=== PATIENT | male | born 1930 | race Caucasian/White ===

== ENCOUNTER 2017-01-05 17:09 | Emergency (ER) | payer OTHER ==
--- NOTE | 2017-01-05 17:33 | PDOC ---
Attending Attestation - Resident Resident Name: Farzaneh Iqbal - ED Attending Attestation I have performed the following: I have examined & evaluated the patient, The case was reviewed & discussed with the resident, I agree w/resident's findings & plan, Exceptions are as noted - HPI HPI: 01/05/17 17:29 86 yo here for chest pain - Physicial Exam PE: 01/05/17 17:30 VSS NAD no active chest pain at present - Medical Decision Making 01/05/17 17:[address] Iqbal's Assessment and Plan
--- NOTE | 2017-01-05 18:13 | PDOC ---
History of Present Illness - General Chief Complaint: Chest Pain Stated Complaint: CHEST PAIN/DIFF BREATHING Time Seen by Provider: 01/05/17 17:22 History Source: Patient, Family Exam Limitations: Language Barrier - History of Present Illness Initial Comments: 01/05/17 18:05 CC: Elevated BP Patient is a 86 y.o. male with a PMH of HTN and Polymyalgia Rheumatica who presents to our ED today c/o of elevated blood pressure. Patient notes he measures his pressure at home daily and he often has an associated neck pain with a high blood pressure reading. Today, patient noted his characteristic neck pain and his subsequent measured pressure 220's/190's. Patient denies any associated blurry vision and further notes he has a constant headache. Patient states he is adherent to his blood pressure medication regimen. Patient denies any current chest pain, abdominal pain, shortness of breath, nausea, vomiting or diarrhea. * Majority of HPI obtained using cuff turner for Somali --> Nauruan translation; patient's son @ bedside offers differing HPI of chest pain following exertion. Past History - Past Medical History Allergies/Adverse Reactions: Allergies Allergy/AdvReac Type Severity Reaction Status Date / Time Sulfa (Sulfonamide Allergy Hives Verified 01/05/17 17:27 Antibiotics) Home Medications: Ambulatory Orders Alfuzosin HCl [Uroxatral] 10 mg PO DAILY 08/13/13 Amlodipine Besylate/Benazepril [Lotrel 10-20 Mg Capsule] 1 each PO DAILY capsule 08/13/13 Doxazosin Mesylate [Cardura] 2 mg PO DAILY tablet 08/13/13 Levothyroxine Sodium 112 mcg PO ONCE #30 tablet 08/13/13 Carvedilol [Coreg -] 12.5 mg PO BID 03/28/15 Lipase/Protease/Amylase [Zenpep Dr 15,000 Units Capsule] 1 each PO 03/28/15 Meloxicam [Mobic (Nf) -] 15 mg PO PRN 03/28/15 Simvastatin [Zocor -] 20 mg PO HS 03/28/15 Prednisone [Deltasone -] 10 mg PO DAILY #60 tablet 01/09/16 HTN: Yes Thyroid Disease: Yes (HYPO) - Immunization History Immunization Up to Date: Yes - Psycho/Social/Smoking Cessation Hx Anxiety: No Suicidal Ideation: No Smoking Status: Yes Smoking History: Never smoked Have you smoked in the past 12 months: No Number of Cigarettes Smoked Daily: 0 If you are a former smoker, when did you quit?: 1970 Hx Alcohol Use: No Drug/Substance Use Hx: No Substance Use Type: None Hx Substance Use Treatment: No Review of Systems - Review of Systems Constitutional: No: Chills, Diaphoresis HEENTM: No: Blurred Vision, Double Vision Respiratory: No: Orthopnea Cardiac (ROS): Yes: Chest Pain ABD/GI: No: Constipated, Diarrhea, Nausea, Vomiting : No: Burning, Pain Musculoskeletal: Yes: Neck Pain Neurological: No: Headache, Numbness, Tingling, Tremors All Other Systems: Reviewed and Negative *Physical Exam - Vital Signs Last Vital Signs Temp Pulse Resp BP Pulse Ox 97.7 F 69 20 179/102 99 01/05/17 17:10 01/05/17 17:10 01/05/17 17:10 01/05/17 17:10 01/05/17 17:10 - Physical Exam General Appearance: Yes: Nourished, Appropriately Dressed HEENT: positive: EOMI, JENNY Neck: positive: Trachea midline, Supple Respiratory/Chest: positive: Lungs Clear, Normal Breath Sounds Cardiovascular: positive: Regular Rhythm, Regular Rate, S1, S2 Gastrointestinal/Abdominal: positive: Soft, Hernia Neurologic: positive: hooker on II-XII NML intact, Fully Oriented, Alert ED Treatment Course - LABORATORY CBC & Chemistry Diagram: 01/05/17 17:36 01/05/17 17:36 Medical Decision Making - Medical Decision Making 01/05/17 18:15 Patient is a 86 y.o. male who presents for elevated BP measured at home at 220's /190's. On PE patient's BP is 150's-160's/80's-90's. EKG showed NSR (HR 62 BPM ), no KS prolongation (KS interval 152 ms), no QT prolongation (QTC 420) and no discernible ST elevations/depressions. Given patient's age and risk factor cardiac profile obtained (note SHANTELLE Score of 1) as well as CMP, CBC. Patient labs pending @ time of signout to Dr. Colton Ojeda (EM Resident) and Dr. Odette Richardson (EM Attending). *DC/Admit/Observation/Transfer Diagnosis at time of Disposition: Blood pressure check - Discharge Dispostion Disposition: HOME Condition at time of disposition: Good Admit: No - Referrals Referrals: Nayan Heath MD [Staff Physician] - - Patient Instructions Printed Discharge Instructions: DI for Atypical Chest Pain Additional Instructions: You were evaluated today for elevated blood pressure as measured at your. Your pressure was stable during your admission here, and we suggest you continue to take your blood pressure medication as directed by your PCP Please return to the ED should you have repeated increased blood pressures, chest pain, shortness of breath, or severe discomfort. We have also provided a referral to general surgery to evaluate your hernia. Please call Dr. Heath's office for an appointment to have your hernia evaluated. Print Language: GUINEAN
[2017-01-05 18:41] LABS: BASOPHIL 0.3 % (0-2.0); MCHC 35.3 g/dl (32.0-35.9); MEAN CELL VOLUME 93.5 fl (80-96); NEUTROPHILS 71.3 % (42.8-82.8); PLATELET COUNT 214 K/MM3 (134-434); RDW 13.3 % (11.9-15.9)
[2017-01-05 18:43] LABS: URINE APPEARANCE CLEAR; URINE BILIRUBIN NEGATIVE (NEGATIVE); URINE BLOOD 1+ (NEGATIVE); URINE COLOR COLORLESS; URINE GLUCOSE (UA) NEGATIVE (NEGATIVE); URINE KETONE NEGATIVE (NEGATIVE); URINE LEUK ESTERASE NEGATIVE (NEGATIVE); URINE NITRITE NEGATIVE (NEGATIVE); URINE PROTEIN NEGATIVE (NEGATIVE); URINE UROBILINOGEN NEGATIVE mg/dL (0.2-1.0)
[2017-01-05 18:53] LABS: URINE BACTERIA RARE /hpf (NONE SEEN); URINE RBC <1 /hpf (0-3); URINE WBC <1 /hpf (3-5)
[2017-01-05 19:05] LABS: ALBUMIN 4.2 g/dl (3.4-5.0); ALK PHOS 141 U/L (45-117); ANION GAP 9 (8-16); BILIRUBIN,TOTAL 0.6 mg/dL (0.2-1.0); CALCIUM 8.9 mg/dL (8.5-10.1); CO2 24 mmol/L (21-32); CREATININE 1.3 mg/dL (0.7-1.3); GLUCOSE,RANDOM 110 mg/dL (74-106); SGOT/AST 19 U/L (15-37); SGPT/ALT 21 U/L (12-78); TOT PROT 7.5 g/dl (6.4-8.2)
--- NOTE | 2017-01-05 19:23 | PDOC ---
*Physical Exam - Vital Signs Last Vital Signs Temp Pulse Resp BP Pulse Ox 97.7 F 69 20 179/102 99 01/05/17 17:10 01/05/17 17:10 01/05/17 17:10 01/05/17 17:10 01/05/17 17:10 - Physical Exam Comments: 01/05/17 19:21 GENERAL: Awake, alert, and fully oriented, in no acute distress HEAD: No signs of trauma, normocephalic, atraumatic EYES: PERRLA, EOMI, sclera anicteric, conjunctiva clear ENT: Auricles normal inspection, hearing grossly normal, nares patent, oropharynx clear without exudates. Moist mucosa NECK: Normal ROM, supple, no lymphadenopathy, JVD, or masses LUNGS: No distress, speaks full sentences, clear to auscultation bilaterally HEART: Regular rate and rhythm, normal S1 and S2, no murmurs, rubs or gallops, peripheral pulses normal and equal bilaterally. EXTREMITIES : Normal inspection, Normal range of motion, no edema. No clubbing or cyanosis. SKIN: Warm, Dry, normal turgor, no rashes or lesions noted. ED Treatment Course - LABORATORY CBC & Chemistry Diagram: 01/05/17 17:36 01/05/17 17:36 - ADDITIONAL ORDERS Additional order review: Laboratory Results 01/05/17 01/05/17 17:36 17:36 Sodium 139 Potassium 4.0 Chloride 106 Carbon Dioxide 24 Anion Gap 9 BUN 24 H Creatinine 1.3 Creat Clearance w eGFR 52.22 Random Glucose 110 H Calcium 8.9 Total Bilirubin 0.6 D AST 19 ALT 21 D Alkaline Phosphatase 141 H Total Protein 7.5 Albumin 4.2 Urine Color Colorless Urine Appearance Clear Urine pH 6.0 Urine Protein Negative Urine Glucose (UA) Negative Urine Ketones Negative Urine Blood 1+ H Urine Nitrite Negative Urine Bilirubin Negative Urine Urobilinogen Negative Ur Leukocyte Esterase Negative Urine RBC <1 Urine WBC <1 Urine Bacteria Rare 01/05/17 17:36 RBC 4.40 MCV 93.5 MCHC 35.3 RDW 13.3 MPV 7.0 L Neutrophils % 71.3 Lymphocytes % 17.7 Monocytes % 7.7 Eosinophils % 3.0 Basophils % 0.3 Medical Decision Making - Medical Decision Making 01/05/17 19:18 86 yo M with h/o HTN who presents with elevated SBP. SBP at home 200's prior to arrival. Pt asymptomatic denies chest pain, SOB, visual complaints, or blood in urine. On arrival SBP 150's. Pt. EKG and CXR Unremarkable. 01/05/17 19:20 ED Course: CBC, CMP, UA: unremarkable Stable D/C *DC/Admit/Observation/Transfer Diagnosis at time of Disposition: Blood pressure check - Discharge Dispostion Disposition: HOME Condition at time of disposition: Good - Referrals Referrals: Nayan Heath MD [Staff Physician] - - Patient Instructions Printed Discharge Instructions: DI for Atypical Chest Pain Additional Instructions: You were evaluated today for elevated blood pressure as measured at your. Your pressure was stable during your admission here, and we suggest you continue to take your blood pressure medication as directed by your PCP Please return to the ED should you have repeated increased blood pressures, chest pain, shortness of breath, or severe discomfort. We have also provided a referral to general surgery to evaluate your hernia. Please call Dr. Heath's office for an appointment to have your hernia evaluated. Print Language: KYRGYZ - Post Discharge Activity
[2017-01-05 19:34] LABS: CPK 86 IU/L (39-308)
[2017-01-05 19:35] LABS: TROPONIN I < 0.02 ng/ml (0.00-0.05)
[2017-01-05 19:50] VITALS: TEMP 98.2; BMI 25.0
[2017-01-05 20:02] VITALS: BP 159/62; PULSE 18
--- NOTE | 2017-01-06 21:47 | EKG ---
Test Reason : Blood Pressure : / mmHG Vent. Rate : 062 BPM Atrial Rate : 062 BPM P-R Int : 152 ms QRS Dur : 092 ms QT Int : 414 ms P-R-T Axes : 050 016 043 degrees QTc Int : 420 ms NORMAL SINUS RHYTHM NORMAL ECG WHEN COMPARED WITH ECG OF 09-JAN-2016 14:26, NO SIGNIFICANT CHANGE WAS FOUND Confirmed by SEFERINO REA MD ([id number]) on 01/06/2017 9:47:21 PM Referred By: Confirmed By:SEFERINO REA MD
== END 2017-01-05 19:50 | disposition home or self-care (01) ==
LOC: JER 17:09
DX: I10 Essential (primary) hypertension (principal); M35.3 Polymyalgia rheumatica
CPT/HCPCS: 36415; 80053; 81003; 81015; 84484; 85025; 93005; 93010; 99283-25

== ENCOUNTER 2017-02-06 14:29 | Emergency (ER) | payer OTHER ==
[2017-02-06 14:39] VITALS: TEMP 98.4; BMI 23.8
--- NOTE | 2017-02-06 16:05 | PDOC ---
History of Present Illness - General History Source: Patient Exam Limitations: No Limitations - History of Present Illness Initial Comments: 02/06/17 16:43 The patient is a 87 year old male, with a significant past medical history of HTN, who presents to the emergency department with mild abdominal pain and elevated BP today. Patient notes measuring his BP at home reading 200/100 and developing abdominal cramping. He denies any prior [place] or cardiac disease. He denies any chest pain complaints upon ED arrival. He denies any recent fevers, chills, headache or dizziness. He denies any recent nausea, vomit, diarrhea or constipation. He denies any recent chest pain or shortness of breath. He denies any recent dysuria, frequency, urgency or hematuria. Allergies: NKA Past surgical history: None reported. Social History: Nonsmoker. Denies EtOH use and recreational drug use. Primary Care Physician: <Amaury Forbes - Last Filed: 02/06/17 16:43> - General History Source: Patient Exam Limitations: No Limitations <Sobia Ford - Last Filed: 02/06/17 18:56> - General Chief Complaint: Blood Pressure Problem Stated Complaint: HIGH BLOOD PRESURE/CHEST PAIN Past History <Amaury Forbes - Last Filed: 02/06/17 16:43> - Past Medical History HTN: Yes Thyroid Disease: Yes (HYPO) - Immunization History Immunization Up to Date: Yes - Suicide/Smoking/Psychosocial Hx Smoking Status: Yes Smoking History: Never smoked Have you smoked in the past 12 months: No Number of Cigarettes Smoked Daily: 0 If you are a former smoker, when did you quit?: 1969 Information on smoking cessation initiated: No Hx Alcohol Use: No Drug/Substance Use Hx: No Substance Use Type: None Hx Substance Use Treatment: No <Sobia Ford - Last Filed: 02/06/17 18:56> - Past Medical History Allergies/Adverse Reactions: Allergies Allergy/AdvReac Type Severity Reaction Status Date / Time Sulfa (Sulfonamide Allergy Hives Verified 02/06/17 14:33 Antibiotics) Home Medications: Ambulatory Orders Doxazosin Mesylate [Cardura] 2 mg PO DAILY tablet 08/13/13 Levothyroxine Sodium 112 mcg PO ONCE #30 tablet 08/13/13 Carvedilol [Coreg -] 6.25 mg PO BID 03/28/15 Meloxicam [Mobic (Nf) -] 15 mg PO PRN 03/28/15 Amlodipine Besylate/Benazepril [Lotrel 10-20 mg Capsule] 1 tab PO DAILY Review of Systems - Review of Systems Able to Perform ROS?: Yes Comments:: 02/06/17 16:17 GENERAL/CONSTITUTIONAL: No fever or chills. No weakness. HEAD, EYES, EARS, NOSE AND THROAT: No change in vision. No ear pain or discharge. No sore throat. CARDIOVASCULAR: No shortness of breath. RESPIRATORY: No cough, wheezing, or hemoptysis. GASTROINTESTINAL: No nausea, vomiting, diarrhea or constipation. GENITOURINARY: No dysuria, frequency, or change in urination. MUSCULOSKELETAL: No joint or muscle swelling or pain. No neck or back pain. SKIN: No rash NEUROLOGIC: No headache, vertigo, loss of consciousness, or change in strength/ sensation. ENDOCRINE: No increased thirst. No abnormal weight change. HEMATOLOGIC/LYMPHATIC: No anemia, easy bleeding, or history of blood clots. ALLERGIC/IMMUNOLOGIC: No hives or skin allergy. <Amaury Forbes - Last Filed: 02/06/17 16:43> *Physical Exam - Vital Signs Last Vital Signs Temp Pulse Resp BP Pulse Ox 98.4 F 48 L 18 214/72 100 02/06/17 14:35 02/06/17 15:10 02/06/17 15:10 02/06/17 15:10 02/06/17 15:15 - Physical Exam Comments: 02/06/17 16:43 GENERAL: Awake, alert, and fully oriented, in no acute distress HEAD: No signs of trauma EYES: PERRLA, EOMI, sclera anicteric, conjunctiva clear ENT: Auricles normal inspection, hearing grossly normal, nares patent, Moist mucosa NECK: Normal ROM, supple, JVD, or masses LUNGS: Breath sounds equal, clear to auscultation bilaterally. No wheezes, and no crackles HEART: Regular rate and rhythm, normal S1 and S2, no murmurs, rubs or gallops ABDOMEN: Soft, nontender, normoactive bowel sounds. No guarding, no rebound. No masses EXTREMITIES: Normal range of motion, no edema. No clubbing or cyanosis. No cords, erythema, or tenderness. 2+DP/PT pulses. NEUROLOGICAL: Normal speech, normal gait, moves all extremities equally. Speech clear. SKIN: Warm, Dry, normal turgor, no rashes or lesions noted. <Amaury Forbes - Last Filed: 02/06/17 16:43> - Vital Signs Last Vital Signs Temp Pulse Resp BP Pulse Ox 98.4 F 48 L 18 214/72 100 02/06/17 14:35 02/06/17 15:10 02/06/17 15:10 02/06/17 15:10 02/06/17 15:15 <Sobia Ford - Last Filed: 02/06/17 18:56> ED Treatment Course - LABORATORY CBC & Chemistry Diagram: 02/06/17 16:05 02/06/17 16:05 <Amaury Forbes - Last Filed: 02/06/17 16:43> - LABORATORY CBC & Chemistry Diagram: 02/06/17 16:05 02/06/17 16:05 - RADIOLOGY Radiology Studies Ordered: Category Date Time Status CHEST PA & LAT [RAD] Stat Radiology 02/06/17 15:59 Ordered <Sobia Ford - Last Filed: 02/06/17 18:56> Medical Decision Making - Medical Decision Making 02/06/17 16:02 87 yo male with h/o htn, here with c/o chest pain and elevated bp at home. here with son. pressure like midsternal chest pain, no radiation 09/04. no aspirin. taking his bp meds. toprol 100 once daily. doxasosin 2mg . compliant no prior mi or stents. on exam awake alert lungs clear heart rrr nomrg. abd soft nt nd. ext wwp no edema. no swelling. / plan: differential acs. angina, pneumonia. hypertensive emergency. plan ekg labs trop, aspirin, repeat bp improved without intervention ined. <Sobia Ford - Last Filed: 02/06/17 18:56> *DC/Admit/Observation/Transfer - Attestations Scribe Attestion: 02/06/17 16:17 Documentation prepared by Amaury Forbes, acting as emergency medical technician/driver for Sobia Ford MD. <Amaury Forbes - Last Filed: 02/06/17 16:43> <Sobia Ford - Last Filed: 02/06/17 18:56> Diagnosis at time of Disposition: Hypertension - Discharge Dispostion Disposition: HOME Condition at time of disposition: Improved - Referrals Referrals: Logan Santos MD [Primary Care Provider] - - Patient Instructions Printed Discharge Instructions: DI for High Blood Pressure, How to Monitor Your Blood Pressure at Home Additional Instructions: follow up with DR Santos to discuss your blood pressure medications. you should be seen in the next. week. return for chest pain, shortness or breath or any concerns.
[2017-02-06 16:20] LABS: BASOPHIL 0.4 % (0-2.0); EOSINOPHIL 1.9 % (0-4.5); MCH 33.2 pg (25.7-33.7); MCHC 34.8 g/dl (32.0-35.9); MEAN CELL VOLUME 95.4 fl (80-96); MEAN PLT VOLUME 7.3 fl (7.5-11.1); NEUTROPHILS 72.3 % (42.8-82.8); PLATELET COUNT 246 K/MM3 (134-434); RDW 13.7 % (11.9-15.9); WHITE BLOOD COUNT 11.8 K/mm3 (4.0-10.0)
[2017-02-06 16:50] LABS: ANION GAP 7 (8-16); CO2 27 mmol/L (21-32); CREATININE 1.4 mg/dL (0.7-1.3); GLUCOSE,RANDOM 96 mg/dL (74-106); SGPT/ALT 22 U/L (12-78)
[2017-02-06 16:54] LABS: ALK PHOS 150 U/L (45-117); BILIRUBIN,TOTAL 0.6 mg/dL (0.2-1.0); TOT PROT 7.3 g/dl (6.4-8.2); TROPONIN I 0.02 ng/ml (0.00-0.05)
[2017-02-06 16:58] LABS: CPK 92 IU/L (39-308); SGOT/AST 21 U/L (15-37)
[2017-02-06 18:59] LABS: URINE APPEARANCE CLEAR; URINE BILIRUBIN NEGATIVE (NEGATIVE); URINE BLOOD 1+ (NEGATIVE); URINE COLOR LTYELLOW; URINE GLUCOSE (UA) NEGATIVE (NEGATIVE); URINE KETONE NEGATIVE (NEGATIVE); URINE NITRITE NEGATIVE (NEGATIVE); URINE UROBILINOGEN NEGATIVE mg/dL (0.2-1.0)
[2017-02-06 19:00] LABS: URINE PROTEIN 2+ (NEGATIVE)
[2017-02-06 19:03] LABS: URINE BACTERIA RARE /hpf (NONE SEEN); URINE MUCUS RARE; URINE RBC <1 /hpf (0-3); URINE WBC 2 /hpf (3-5)
[2017-02-06 19:54] VITALS: BP 138/81; PULSE 42
[2017-02-06 20:07] LABS: URINE LEUK ESTERASE Negative (NEGATIVE)
--- NOTE | 2017-02-07 09:10 | EKG ---
Test Reason : Blood Pressure : / mmHG Vent. Rate : 040 BPM Atrial Rate : 040 BPM P-R Int : 148 ms QRS Dur : 088 ms QT Int : 492 ms P-R-T Axes : 060 041 048 degrees QTc Int : 400 ms MARKED SINUS BRADYCARDIA MINIMAL VOLTAGE CRITERIA FOR LVH, MAY BE NORMAL VARIANT ABNORMAL ECG WHEN COMPARED WITH ECG OF 05-JAN-2017 17:21, VENT. RATE HAS DECREASED BY 22 BPM Confirmed by NINFA POLANCO MD ([id number]) on 02/07/2017 9:10:29 AM Referred By: Confirmed By:NINFA POLANCO MD
== END 2017-02-06 19:45 | disposition home or self-care (01) ==
LOC: JER 14:29
DX: I10 Essential (primary) hypertension (principal); E03.9 Hypothyroidism, unspecified; Z88.2 Allergy status to sulfonamides
CPT/HCPCS: 36415; 70450-TC; 71020-TC; 80053; 81003; 81015; 82550; 84484; 85025; 93005; 93010; 99283-25